=== PATIENT | male | born 1970 | race Caucasian/White ===

== ENCOUNTER 2024-03-22 19:40 | Emergency (ER) | payer SELFPAY ==
[~2024-03-22] VITALS: Ht 190.5 cm; Wt 122.0 kg
[2024-03-22 19:42] VITALS: O2SAT 99
[2024-03-22] MEDS: SODIUM CHLORIDE 0.9% 1000ML BAG (SEPSIS BOLUS) IV ONE (20:58)
[2024-03-22 21:18] LABS: BASOPHILS % 0.4 % (0.0-2.0); EOSINOPHILS % 0.7 % (0.0-5.0); HEMOGLOBIN. 14.7 g/dL (14.0-18.0); LYMPHOCYTES % 8.5 % (20.0-50.0); MEAN CORPUSCULAR HEMOGLOBIN 33.3 pg (28.0-32.0); MEAN CORPUSCULAR HGB CONC 35.1 g/dL (31.0-37.0); MEAN CORPUSCULAR VOLUME 94.9 fL (80.0-94.0); MEAN PLATELET VOLUME 7.7 fl (7.4-10.4); MONOCYTES % 7.9 % (2.0-8.0); NEUTROPHILS % 82.5 % (40.0-76.0); PLATELET 246 x1000/uL (130-400); RED BLOOD CELL COUNT 4.42 mill/uL (4.7-6.1); RED CELL DISTRIBUTION WIDTH 14.1 % (11.6-14.6); WHITE BLOOD COUNT 10.2 x1000/uL (4.5-11.0)
[2024-03-22 21:25] LABS: CHLORIDE 104 mEq/L (98-107); POTASSIUM 4.2 mEq/L (3.5-5.1); SODIUM 134 mEq/L (136-145)
[2024-03-22 21:26] LABS: CALCIUM 8.7 mg/dL (8.7-10.4); CARBON DIOXIDE 23 mEq/L (21-32)
[2024-03-22 21:31] LABS: CREATININE 1.7 mg/dL (0.6-1.3); GLUCOSE 89 mg/dL (70-105); UREA NITROGEN BLOOD 16 mg/dL (9-23)
[2024-03-22 21:32] LABS: ETHANOL BLOOD 17 mg/dL (<10); LACTIC ACID 2.1 mmol/L (0.4-2.0); TROPONIN I HIGH SENSITIVITY 8 ng/L (3.0-53)
[2024-03-22 21:33] LABS: ALANINE AMINOTRANSFERASE 22 IU/L (10-49); ALBUMIN 3.8 g/dL (3.2-4.8); ASPARTATE AMINOTRANSFERASE 20 IU/L (<34); BILIRUBIN DIRECT 0.1 mg/dL (<=3.0); BILIRUBIN TOTAL 0.4 mg/dL (0.1-1.0); PROTEIN TOTAL 6.3 g/dL (6.0-8.3)
[2024-03-23 00:20] VITALS: BP 128/77; PULSE 88; RESP 22; TEMP 36.94740; O2SAT 96
== END 2024-03-23 00:20 | disposition home or self-care (01) ==
LOC: ER 19:40
DX: F12.10 Cannabis abuse, uncomplicated (principal); R42 Dizziness and giddiness; R11.0 Nausea; Z86.718 Personal history of other venous thrombosis and embolism; Z86.73 Personal history of transient ischemic attack (TIA), and cerebral infarction without residual deficits
CPT/HCPCS: 80076; 80048; 80320; 83605; 85025; 87040; 84484; 36415; 84145; 71045; 93005; 96360; 99285; J7030; Z7610; G0480